=== PATIENT | female | born 1965 | race Caucasian/White ===

== ENCOUNTER 2017-05-29 08:56 | Outpatient (CLI) | payer OTHER | END 2017-05-29 19:28 | disposition home or self-care (01) | LOC: SMA 08:56 | PROVIDERS: ATTEND Family Medicine | DX: N63.0 Unspecified lump in unspecified breast (principal); R92.8 Other abnormal and inconclusive findings on diagnostic imaging of breast | CPT/HCPCS: 76642; G0206 ==

== ENCOUNTER 2017-10-08 12:54 | Outpatient (CLI) | payer OTHER | END 2017-10-08 19:46 | disposition home or self-care (01) | LOC: SMA 12:54 | PROVIDERS: ATTEND Family Medicine | DX: R92.8 Other abnormal and inconclusive findings on diagnostic imaging of breast (principal) | CPT/HCPCS: 76642; 77065 ==